=== PATIENT | male | born 2000 | race Caucasian/White ===

== ENCOUNTER → 2020-03-04 | Outpatient (CLI) | payer OTHER ==
[~2020-03-04] MED LIST: E-Z-GAS II EFFERVESCENT PACKET (SODIUM BICARB./CITRIC ACID/SIMETHICONE) As Ordered ONE; E-Z-HD 98% w/w 340GM SUSP BTL As Ordered ONE; E-Z-PAQUE 96% w/w SUSP 176GM BTL As Ordered ONE
--- NOTE | 2020-03-04 16:51 | REP ---
Examination Requested: Esophagram Barium Swallow Reason For Exam/Comment: Gastroesophageal reflux disease Esophagram: The procedure was performed ZULY Kong, under the direct supervision of Dr. Amaya. The images were reviewed with Dr. Amaya. 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 The superior mediastinal structures are midline. The heart size is within normal limits. The lungs are clear. Liquid barium and gas producing granules were given in the erect position as well as liquid barium in the prone oblique position, in order to perform a double contrast esophagram examination. Oral and pharyngeal stages of the examination were unremarkable. Esophageal transport is efficient and there is no esophagitis, stricture, or mucosal ring noted. However feline esophagus was visualized in the proximal one third of the esophagus during this exam. There is no hiatal hernia noted. Gastroesophageal reflux was not visualized during the exam. Impression: 1. 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 0.4 minutes of fluoroscopy time was utilized for this procedure. Some fluoroscopic images are performed with last image hold technology. These images require no additional radiation. Reviewed by ZULY oLzano 03/04/2020 03:17 P Electronically Signed by Amor Amaya MD 03/04/2020 04:42 P
== END ==
LOC: M RAD 10:01 → EDSEX 10:30
PROVIDERS: ATTEND Otolaryngology
DX: K21.9 Gastro-esophageal reflux disease without esophagitis (principal)

== ENCOUNTER → 2020-03-09 | Outpatient (CLI) | payer OTHER ==
[~2020-03-09] MED LIST changes: -E-Z-GAS II EFFERVESCENT PACKET (SODIUM BICARB./CITRIC ACID/SIMETHICONE) As Ordered ONE; -E-Z-HD 98% w/w 340GM SUSP BTL As Ordered ONE; -E-Z-PAQUE 96% w/w SUSP 176GM BTL As Ordered ONE; +E-Z-PAQUE 96% w/w SUSP 176GM BTL ONE; +VARIBAR NECTAR 40% w/v 240ML SUSP BTL ONE; +VARIBAR PUDDING 40% w/v 230ML TUBE ONE
--- NOTE | 2020-05-01 14:01 | REP ---
COOKIE SWALLOW: The procedure was performed under the direct supervision of Dr. Amaya. The procedure was performed with Makayla Dutton from Speech Pathology present. FINDINGS: 5 cc aliquots of thin pudding, mixed fruit, soft and solid consistency barium were administered. There is no evidence of penetration or aspiration. A detailed report of this examination will be provided by speech pathology. 1.6 minutes of fluoroscopy time was utilized for this procedure. SITA
== END ==
LOC: EDSEX → M ST 13:54 → EDUNIT# 14:00
PROVIDERS: ATTEND Otolaryngology
DX: K21.9 Gastro-esophageal reflux disease without esophagitis (principal)